=== PATIENT | male | born 1975 | race Caucasian/White ===

== ENCOUNTER 2017-07-20 | Emergency (ER) | END 2017-07-20 17:16 | disposition home or self-care (01) ==

== ENCOUNTER 2024-01-17 19:48 | Emergency (ER) | payer OTHER ==
[~2024-01-17] VITALS: Ht 175.3 cm; Wt 71.7 kg
[~2024-01-17 19:48] MED LIST: ALBU8HFA2 INH; ALBU90I INH; ALBU90OI6 INH; AMOX500 PO; CEPH500 PO; CODGUAEL PO; Ciloxan5 ML LEFTEYE; Crutch1 EACH MISC; ERYT.5TO OD; HYDACE5 PO; IBUP600 PO; IBUP800 PO; KEFLEX250 MG PO; NAPR500 PO; OXYACE5T PO; Percocet 5-3251 EACH PO; SULTRIDS PO
[2024-01-17 20:23] VITALS: BP 133/94
[2024-01-17] MEDS ORDERED: Diphth,Pertuss(Acell),Tet Vac 0.5 ML VIAL IM ONE ×2 (20:25→23:35)
== END 2024-01-18 00:04 | disposition home or self-care (01) ==
LOC: ER 19:48
DX: S61.411A Laceration without foreign body of right hand, initial encounter (principal); R20.2 Paresthesia of skin; W29.2XXA Contact with other powered household machinery, initial encounter
CPT/HCPCS: 12001; 73130; 90471; 90715; 99283-25

== ENCOUNTER 2025-02-21 14:57 | Emergency (ER) | payer OTHER ==
[~2025-02-21] VITALS: Ht 182.9 cm; Wt 72.6 kg
[2025-02-21 15:13] VITALS: BP 113/77
[2025-02-21] MEDS ORDERED: Ketorolac Tromethamine 15mg Vial IV ONE (15:20)
[2025-02-21 15:37] LABS: BASOPHILS ABSOLUTE AUTO 0.02 K/mm3 (0.00-0.23); BASOPHILS PERCENT AUTO 0 % (0-2); EOSINOPHILS ABSOLUTE AUTO 0.00 K/mm3 (0.00-0.68); EOSINOPHILS PERCENT AUTO 0 % (0-6); Hematocrit 41.2 % (37.0-53.0); Hemoglobin 14.3 g/dL (13.5-17.5); IMMATURE GRAN ABSOLUTE AUTO 0.03 K/mm3 (0.00-0.10); IMMATURE GRAN PERCENT AUTO 1 % (0-1); LYMPHOCYTES ABSOLUTE AUTO 0.85 K/mm3 (0.84-5.20); LYMPHOCYTES PERCENT AUTO 15 % (21-46); MONOCYTES ABSOLUTE AUTO 0.61 K/mm3 (0.16-1.47); MONOCYTES PERCENT AUTO 11 % (4-13); Mean Corpuscular HGB Conc 34.7 g/dL (31.5-36.5); Mean Corpuscular Volume 86 fL (80-100); NEUTROPHILS ABSOLUTE AUTO 4.24 K/mm3 (1.96-9.15); NEUTROPHILS PERCENT AUTO 74 % (41-73); NRBC ABSOLUTE 0.00 K/mm3 (0.00-0.02); NRBC Auto 0.0 /100 WBC (0.0-0.2); Platelet Count 176 K/mm3 (150-400); RDW Coefficient Variation 12.1 % (11.7-14.2); RDW Standard Deviation 38.9 fL (35.1-46.3)
[2025-02-21 16:04] LABS: Alanine Aminotransfer (ALT/SGP 100.0 U/L (12-78); Albumin, Blood 3.8 g/dL (3.4-5.0); Albumin/Globulin Ratio 0.9 (0.8-1.8); Anion Gap 11.0 mmol/L (3-11); Aspartate Aminotrans (AST/SGOT 40.0 U/L (12-37); Bilirubin, Total 0.6 mg/dL (0.1-1.0); Blood Urea Nitrogen 18.0 mg/dL (8-24); CO2, Blood 25.0 mmol/L (21-32); Calcium, Blood 8.7 mg/dL (8.5-10.1); Chloride, Blood 100.0 mmol/L (98-108); Creatinine, Blood 0.77 mg/dL (0.60-1.20); Globulin, Blood 4.1 g/dL (2.2-4.0); Glucose, Blood 96.0 mg/dL (70-99); Potassium, Blood 4.0 mmol/L (3.5-5.5); Sodium, Blood 132.0 mmol/L (136-145); Total Protein, Blood 7.9 g/dL (6.4-8.2)
[2025-02-21 17:46] LABS: Influenza A, PCR Positive (NEGATIVE); Influenza B, PCR Negative (NEGATIVE); Resp Syncytial Virus, PCR Negative (NEGATIVE); SARS-Cov-2 (COVID-19) PCR, MMC Negative (NEGATIVE)
[2025-02-21] MEDS ORDERED: Ketorolac Tromethamine 30mg Vial IM ONE (19:10)
== END 2025-02-21 19:32 | disposition home or self-care (01) ==
LOC: ER 14:57
PROVIDERS: Student in an Organized Health Care Education/Training Program
DX: J10.1 Influenza due to other identified influenza virus with other respiratory manifestations (principal)
CPT/HCPCS: 71046; 80053; 85025; 87637; 96372; 96374; 99283-25; A9270; J1885